=== PATIENT | male | born 1940 | race American Indian/Alaskan Native ===

== ENCOUNTER 2017-11-16 15:27 | Inpatient (IN) | payer MEDICARE ==
[2017-11-16] MEDS ORDERED: Vancomycin 1gm in NS 250ml 1 GM/250 ML BAG IVPB STA (16:49)
[2017-11-16] MEDS ORDERED: Piperacillin/Tazobact 3.375 gm 100 ML IVPB STA (16:49)
[2017-11-16 17:17] LABS: EOS % 0.2 % (1.5-5.0); GRAN # 2.78 (1.4-6.5); GRAN % 47.3 % (50.0-68.0); HEMOGLOBIN 10.6 g/dL (14.0-18.0); LYMPH # 1.9 (1.2-3.4); LYMPH % 31.7 % (22.0-35.0); MEAN CELL VOLUME 88.1 fl (80.0-105.0); MEAN CORPUSCULAR HEMOGLOBIN 28.6 pg (25.0-35.0); MEAN CORPUSCULAR HGB CONC 32.5 g/dl (31.0-37.0); MEAN PLATELET VOLUME 12.3 fl (7.0-11.0); MONO # 1.2 (0.1-0.6); MONO % 20.8 % (1.0-6.0); PLATELET COUNT 126 10^3/uL (120.0-450.0); RED CELL DISTRIBUTION WIDTH 13.2 % (11.5-14.5); VENOUS BLOOD GAS BASE EXCESS 5.3 mmol/L (0.0-2.0); VENOUS BLOOD GAS PO2 35 mm/Hg (30-55); VENOUS BLOOD PH 7.32 (7.32-7.43); WHITE BLOOD COUNT 5.9 10^3/ul (4.5-11.0)
--- NOTE | 2017-11-16 17:17 | ED PDOC ---
Arrival/HPI - General Chief Complaint: Lower Extremity Problem/Injury Time Seen by Provider: 11/16/17 15:50 Historian: Patient - History of Present Illness Narrative History of Present Illness (Text): 11/16/17 17:13 77-year-old male presents today with a nonhealing wound to the medial aspect of the right ankle. Patient states she was sent into the emergency room by his rail specialist today for admission. Patient states he is having increasing pain to the medial aspect of the right ankle with increasing swelling and erythema. Patient denies fevers or chills. Denies chest pain or shortness of breath. Patient denies dizziness or weakness. Patient states he does not take any medications for pain at home. Patient states he's been on multiple antibiotics for this wound without improvement. Patient denies numbness weakness or tingling in the extremity. No other complaints. Past Medical History - Provider Review Nursing Documentation Reviewed: Yes - Travel History Have you recently traveled outside [place] w/in the past 3 mons?: No - Infectious Disease Hx of Infectious Diseases: None - Tetanus Immunization Tetanus Immunization: Unknown - Cardiac Hx Cardiac Disorders: Yes Hx Hypertension: Yes Hx Pacemaker: No - Pulmonary Hx Respiratory Disorders: No - Neurological Hx Neurological Disorder: No Hx Paralysis: No - HEENT Hx HEENT Disorder: Yes Hx Cataracts: Yes (BILAT.) - Renal Hx Renal Disorder: No - Endocrine/Metabolic Hx Endocrine Disorders: Yes Hx Diabetes Mellitus Type 2: Yes - Hematological/Oncological Hx Blood Disorders: Yes Hx Blood Transfusions: Yes Hx Blood Transfusion Reaction: No Hx Cancer: Yes (prostate) - Integumentary Hx Dermatological Disorder: No - Musculoskeletal/Rheumatological Hx Musculoskeletal Disorders: Yes Hx Arthritis: Yes Hx Degenerative Joint Disease: Yes Hx Falls: No Other/Comment: HX: RIGHT SHOULDER -SURGERY"THEY PUT A NEW ONE IN.". HX: RIGHT TOES- INJURY AT WORK-SURGERY TO REPAIR - Gastrointestinal Hx Gastrointestinal Disorders: No - Genitourinary/Gynecological Hx Genitourinary Disorders: Yes Hx Prostate Cancer: Yes - Psychiatric Hx Psychophysiologic Disorder: No Hx Depression: No Hx Substance Use: No - Surgical History Hx Cataract Extraction: Yes (RIGHT EYE) Hx Cardiac Catheterization: Yes Hx Orthopedic Surgery: Yes Other/Comment: STOMACH/FOOT SURGERY - Anesthesia Hx Anesthesia: Yes Hx Anesthesia Reactions: No Hx Malignant Hyperthermia: No - Suicidal Assessment Feels Threatened In Home Enviroment: No Family/Social History - Physician Review Nursing Documentation Reviewed: Yes Family/Social History: Unknown Family HX Smoking Status: Never Smoked Hx Alcohol Use: No Hx Substance Use: No Hx Substance Use Treatment: No Allergies/Home Meds Allergies/Adverse Reactions: Allergies lisinopril Allergy (Verified 04/21/16 16:11) ANAPHYLAXIS Home Medications: Home Meds Medication Instructions Recorded Confirmed Aspirin [Ecotrin] 325 mg PO DAILY 03/06/15 11/16/17 Bicalutamide 50 mg PO DAILY 03/06/15 11/16/17 [place] Cit/D3/K/Mag Ox/Stron/Bor 2 tab PO BID 03/06/15 11/16/17 [Prosteon] Metformin HCl [Metformin] 1,000 mg PO BID 03/06/15 11/16/17 amLODIPine [Norvasc] 10 mg PO DAILY 03/06/15 11/16/17 Calcium Citrate 200 mg PO DAILY 02/04/17 11/16/17 Review of Systems - Review of Systems Constitutional: absent: Fatigue, Fevers Respiratory: absent: SOB, Cough Cardiovascular: absent: Chest Pain, Palpitations Gastrointestinal: absent: Abdominal Pain, Nausea, Vomiting Musculoskeletal: Arthralgias. absent: Back Pain, Neck Pain Skin: Skin Lesions, Cellulitis Neurological: absent: Headache, Dizziness Psychiatric: absent: Anxiety, Depression Physical Exam Vital Signs Reviewed: Yes Vital Signs Temp Pulse Resp BP Pulse Ox 11/16/17 17:07 94 H 18 122/69 98 11/16/17 15:45 99.5 F 100 H 20 124/72 98 Temperature: Afebrile Blood Pressure: Normal Pulse: Tachycardic Respiratory Rate: Normal Appearance: Positive for: Well-Appearing, Non-Toxic, Comfortable Pain Distress: None Mental Status: Positive for: Alert and Oriented X 3 - Systems Exam Head: Present: Atraumatic Mouth: Present: Moist Mucous Membranes Respiratory/Chest: Present: Clear to Auscultation Cardiovascular: Present: Regular Rate and Rhythm Abdomen: No: Tenderness, Distention, Peritoneal Signs, Rebound, Guarding Upper Extremity: Present: Normal ROM Lower Extremity: Present: NORMAL PULSES, Tenderness (right leg; + ulceration noted to medial aspect of right ankle with surrounding erythema and tenderness; + edema noted to foot and ankle; sensation and distal pulses intact; cap refill <2. ), Swelling, Erythema, Neurovascularly Intact, Capillary Refill < 2 s. No: CALF TENDERNESS Neurological: Present: GCS=15, Speech Normal Skin: Present: Warm, Dry Psychiatric: Present: Alert, Oriented x 3 Medical Decision Making ED Course and Treatment: 11/16/17 17:19 77-year-old male with ulceration to the medial aspect of the right ankle that has been nonhealing. Now with surrounding erythema and edema. CBC hgb;10.6 CMP: glucose; 113 Blood cultures pending Urine cultures pending Wound cultures pending Vancomycin and Zosyn started IV Per patient's rail specialist patient had negative x-ray of the ankle and will need MRI to rule out osteomyelitis. Case discussed in depth with Dr. Hood covering for dr. ian sawant patients; accepts admission impression; infected ulcer admit to med/surg - Lab Interpretations Lab Results: 11/16/17 17:00 11/16/17 17:00 Lab Results 11/16/17 17:00: WBC 5.9 D, RBC 3.70, Hgb 10.6 L, Hct 32.6 L, MCV 88.1, MCH 28.6 , MCHC 32.5, RDW 13.2, Plt Count 126, MPV 12.3 H, Gran % 47.3 L, Lymph % (Auto) 31.7, Cass % (Auto) 20.8 H, Eos % (Auto) 0.2 L, Baso % (Auto) 0.0, Gran # 2.78, Lymph # (Auto) 1.9, Cass # (Auto) 1.2 H, Eos # (Auto) 0.0, Baso # (Auto) 0.00, Neutrophils % (Manual) 60, Lymphocytes % (Manual) 30, Monocytes % (Manual) 9 H, Eosinophils % (Manual) 1, Platelet Evaluation Normal 11/16/17 17:00: Sodium 143, Chloride 101, Potassium 4.1, Carbon Dioxide 31, Anion Gap 14, BUN 18, Creatinine 1.0, Est GFR ( Amer) > 60, Est GFR (Non- Af Amer) > 60, Random Glucose 113 H, Calcium 10.1, Total Bilirubin 0.3, AST 19, ALT 29, Alkaline Phosphatase 65, Total Protein 7.7, Albumin 4.4, Globulin 3.3, Albumin/Globulin Ratio 1.3 11/16/17 17:00: pO2 35, VBG pH 7.32, VBG pCO2 65.0 H, VBG HCO3 33.5 H, VBG Total CO2 35.5 H, VBG O2 Sat (Calc) 66.5 H, VBG Base Excess 5.3 H, VBG Potassium 4.0, Sodium 142.0, Chloride 107.0, Glucose 115 H, Lactate 1.3, FiO2 21.0, Venous Blood Potassium 4.0 11/16/17 16:59: POC Glucose (mg/dL) 113 H - RAD Interpretation Radiology Orders: 11/16/17 16:46 DUPLEX LOWER EXTRM VEIN RIGHT [US] Stat - Medication Orders Current Medication Orders: Discontinued Medications Vancomycin HCl (Vancomycin 1gm) 1 gm in 250 mls @ 167 mls/hr IVPB STAT STA PRN Reason: Protocol Stop: 11/16/17 18:18 Last Admin: 11/16/17 17:53 Dose: 167 mls/hr eMAR Start Stop Document 11/16/17 17:53 HI (Rec: 11/16/17 17:53 HI [id number]) Intravenous Solution Start Date 11/16/17 Start Time 17:53 Piperacillin Sod/Tazobactam Sod (Zosyn 3.375 In Ns 100ml) 100 mls @ 200 mls/hr IVPB STAT STA PRN Reason: Protocol Stop: 11/16/17 17:18 Last Admin: 11/16/17 17:09 Dose: 200 mls/hr eMAR Start Stop Document 11/16/17 17:09 RG (Rec: 11/16/17 17:11 RG [id number]) Intravenous Solution Start Date 11/16/17 Start Time 17:09 Disposition/Present on Arrival - Present on Arrival Any Indicators Present on Arrival: Yes History of DVT/PE: No History of Uncontrolled Diabetes: Yes Urinary Catheter: No History of Decub. Ulcer: No History Surgical Site Infection Following: None - Disposition Have Diagnosis and Disposition been Completed?: Yes Diagnosis: Infected ulcer of skin Disposition: HOSPITALIZED Disposition Time: 18:43 Patient Plan: Admission Condition: FAIR Referrals: Ian Ford MD [Primary Care Provider] - Follow up with primary Forms: [employer] (Lao)
[2017-11-16 17:29] LABS: ALB/GLOB RATIO 1.3 (1.1-1.8); ALBUMIN 4.4 g/dL (3.0-4.8); ALT/SGPT 29 U/L (7-56); AST/SGOT 19 U/L (17-59); BLOOD UREA NITROGEN 18 mg/dL (7-21); CALCIUM 10.1 mg/dL (8.4-10.5); GFR AFRICAN-AMERICAN > 60; GFR NON-AFRICAN AMERICAN > 60
--- NOTE | 2017-11-16 18:02 | US ---
PROCEDURE: Right lower extremity venous US HISTORY: Leg pain and swelling. Evaluate for DVT. PHYSICIAN(S): Misbah Chand M.D. TECHNIQUE: Duplex sonography and color-flow Doppler with graded compression were used to evaluate the deep venous system of the right lower extremity. FINDINGS: The visualized deep venous system of the right lower extremity is sonographically normal and compressible. Normal waveforms and augmentation are seen. There is no sonographic evidence for deep venous thrombosis in the visualized segments of the right lower extremity. IMPRESSION: 1. No sonographic evidence for deep venous thrombosis in the visualized segments of the right lower extremity.
[2017-11-16 18:11] LABS: EOSINOPHIL 1 % (0.0-3.0); LYMPHOCYTE 30 % (22.0-35.0); MONOCYTE 9 % (1.0-6.0); NEUTROPHIL 60 % (50.0-70.0); PLATELET ESTIMATE NORMAL (NORMAL)
[2017-11-16 19:10] LABS: URINE BILIRUBIN NEGATIVE (NEGATIVE); URINE BLOOD NEGATIVE (NEGATIVE); URINE GLUCOSE (UA) NEGATIVE (NEGATIVE); URINE LEUKOCYTE ESTERASE NEGATIVE Leu/uL (NEGATIVE); URINE PROTEIN TRACE mg/dL (<30 mg/dL); URINE UROBILINOGEN 0.2 E.U./dL (<1 E.U./dL)
[2017-11-16 19:14] LABS: URINE APPEARANCE CLEAR (CLEAR); URINE COLOR YELLOW (YELLOW)
[2017-11-16 19:15] LABS: URINE RBC NEGATIVE /hpf (0-2); URINE WBC NEGATIVE /hpf (0-6)
[2017-11-16] MEDS: Vancomycin 1gm in NS 250ml 1 GM/250 ML BAG IVPB SCH (21:00)
[2017-11-17] MEDS: Piperacillin/Tazobact 3.375 gm 100 ML IVPB SCH ×2 (00:32→05:55)
[2017-11-17] MEDS: Insulin Lispro (humaLOG) MEDIUM Coverage SC SCH ×3 (00:33→12:04)
[2017-11-17 01:56] VITALS: BMI 30.3
--- NOTE | 2017-11-17 03:15 | HP ---
HISTORY OF PRESENT ILLNESS: The patient is a 77-year-old , very pleasant gentleman, who was referred by Dr. Cooper for nonhealing ulcer and wound on the right ankle medial malleolar part. He has been followed with him regularly in wound care center. He states that he has pain on has been increasingly getting worse along with swelling and redness. Denies any trauma to the area, no history of falls, no history of fever or chills, no history of nausea or vomiting, no diarrhea, no chest pain, no shortness of breath. The patient states he has been regularly following with the impregnator and has multiple rounds of antibiotics. PAST MEDICAL HISTORY: Significant for 1. Hypertension. 2. Azq-bugcztw-xxxbayzgd diabetes. 3. History of CA prostate, on Casodex. 4. History of penile lesion excision. 5. History of degenerative disk disease. PAST SURGICAL HISTORY: Significant for 1. Bilateral cataract extraction. 2. Status post right shoulder surgery. ALLERGY: HE IS ALLERGIC TO LISINOPRIL. MEDICATIONS AT HOME: He is on 1. Multivitamin. 2. Aspirin 325 daily. 3. Norvasc 10 mg daily. 4. Metformin 1000 twice a day. 5. Casodex 50 mg daily. SOCIAL HISTORY: Denies smoking, drinking or alcohol use. PHYSICAL EXAMINATION: GENERAL: He is awake, alert, oriented, communicative. VITAL SIGNS: His temperature 99.5, pulse 100, respirations 20, blood pressure 124/72. LUNGS: Bilateral good airflow. No rhonchi or crackle. HEART: S1 and S2 audible. No murmur. ABDOMEN: Soft, nontender, no rebound, no guarding. NEUROLOGIC: The patient is awake and alert, communicative. EXTREMITIES: Right medial malleolar aspect, there is ulceration on the medal aspect along with erythema and palpable tenderness, also swelling of the foot and ankle. Distal pulses seem to be intact. LABORATORY DATA: WBC 5.9, hemoglobin 10.6, hematocrit 32.6, platelets of 126. Chemistry: Sodium 143, potassium 4.1, chloride 101, CO2 of 31, BUN 18, creatinine 1, blood sugar of 113. LFTs are within normal limits. Urinalysis is unremarkable. He had leg Doppler done that was negative for DVT. X-ray of the ankle done on 11/09/2017 is normal. ASSESSMENT AND PLAN: 1. Nonhealing right ankle medial malleolar wound. 2. Bcj-ebyhvmf-mfhrmwauk diabetes. 3. Hypertension. 4. History of cancer of prostate. PLAN: The patient will be admitted. We will give him IV antibiotic, monitor blood sugar. ID consult by Dr. Tariq and Podiatry consult by Dr. Cooper has been requested. Kirsty Hood MD
[2017-11-17] MEDS: Vancomycin 1gm in NS 250ml 1 GM/250 ML BAG IVPB SCH ×2 (08:17→20:37)
[2017-11-17] MEDS: Aspirin 325 mg EC Tablets PO SCH ×2 (10:11→10:20)
[2017-11-17] MEDS: MethylPREDNISolone 40 mg Vial IVP SCH ×2 (10:12→17:05)
--- NOTE | 2017-11-17 11:30 | RAD ---
PROCEDURE: Right Ankle Radiographs. HISTORY: Pain COMPARISON: None FINDINGS: BONES: No evidence of acute displaced fracture nor dislocation. . The osseous structures appear intact. Talar dome intact. Small plantar and posterior calcaneal enthesophyte formation noted. JOINTS: Ankle mortise maintained Degenerative changes of the tibiotalar articulation. There is also a calcification along the lateral aspect of the distal right tibial diametaphysis which may be secondary to an old posttraumatic sequela or possibly ossification of the interosseous membrane. SOFT TISSUES: There is mild soft tissue swelling over the medial and lateral malleoli former slightly more so than latter. OTHER FINDINGS: None. IMPRESSION: No acute fractures. Degenerative osteoarthritis as described. 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 Mild bilateral soft tissue swelling medial slightly greater than lateral.
--- NOTE | 2017-11-17 17:01 | PN ---
DATE: 11/17/2017 SUBJECTIVE: This is a 77-year-old diabetic male, seen for a nonhealing ulceration to his right lower extremity. Patient states it started 3 months ago as a blister and has progressively gotten worse. He states that he saw Dr. Cooper yesterday and Dr. Cooper noted that the leg was red and brought patient into the hospital. Patient has a past medical history of prostate cancer for which he is taking Casodex. He also has a history of type 2 diabetes. Patient has had venous Dopplers. He has had extremity arterial Dopplers and everything was within normal limits. There was no blood clot seen in the leg and his vascular was within normal limits. I did state to Dr. Chand about this. The patient also saw the guest service supervisor for an autoimmune workup and that workup was also negative. Dr. Willingham, the guest service supervisor, apparently stated that there is a possibility of placing patient on Plaquenil and prednisone if vasculitis is noted. Patient also had a skin biopsy and it was noted that he did have a focal vasculitis and stromal changes in the epidermis and it was consistent with venous stasis changes and it was also negative for malignancy. PHYSICAL EXAMINATION: VITAL SIGNS: Patient's vital signs were noted today. His temperature is 98.6, his pulse is 95, blood pressure is 149/100, his respiratory rate was 20 and his oxygen sat is 97. MEDICATIONS: Noted on the SEP and he is presently on vancomycin as per Infectious Disease. 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 He is on Norvasc. He is being covered with Humalog. He is taking Glucophage, Ecotrin and Casodex. LABORATORY DATA: Patient's labs were reviewed. His white blood cell count is 5.9. His ESR is 30. H and H is 10.6 and 32.6 and platelets are 126. He has granulocytes of 47.3, lymphocytes are 31.1 and this is a shift to the right, not to the left, which would be for an acute infection. Patient's chemistry is grossly within normal limits. His random glucose at this time is 113 yesterday. Today, it is 187. Patient as noted has been started on prednisone. Unfortunately, that will make those glucoses erratic. His microbiology for all the visits were coag-negative Staph that I have seen in the computer, Gram stain done yesterday was pending, and clinically the patient has 2/4 palpable pedal pulses. His temperature gradient is warm on the right and within normal limits on the left. He does have a +3 edema to the right foot and ankle and no edema is noted on the left foot and ankle. Patient is severely painful with palpation of his Achilles tendon and the tenderness is more so at the mild tenderness junction and at the insertion. He also has a lot of pain with forced dorsiflexion of his foot, again in the area of the calf and the Achilles tendon. There does not appear to be any fluctuance around the wound. There is redness around the wound and the tissue is fibrous with some hemorrhage tissue in the upper corner of the wound. The wound measures approximately 2 x 2.5 x 0.1 cm. There is no sinus tract. There is no fluctuance noted. ASSESSMENT: A non-healing ulceration to the right leg, nonpressure ulceration. PLAN OF TREATMENT: MRI was ordered. I asked them to pinpoint on the Achilles tendon to rule out any Achilles tendon tear. We will also look for any abscess in the leg. Patient might need a second biopsy that we can send this to a Dermpath. X-rays were also ordered to take a look at the bones on the ankles and some medications he is on can cause osteopenia and it also causes angioedema and edema of the extremities. This was all discussed with patient and at this time, we will await the findings of the imaging and I think, the patient most likely will need compression dressings if all these are negative. Patient was dressed with a film dressing today and we ordered Bactroban ointment to be placed on the wound under the film. Gricel Knight DPM
[2017-11-17] MEDS: Insulin Lispro (HUMAlog) HIGH Coverage SC SCH ×2 (17:05→21:49)
--- NOTE | 2017-11-17 17:39 | PN ---
DATE: SUBJECTIVE: The patient is a 77-year-old who was sent by Dr. Cooper for nonhealing ulcer. The patient had biopsy done that was nondiagnostic. Also, had arterial study done that was also unremarkable for PVD, so sent here for further followup. The patient was also evaluated by Dr. Willingham who did autoimmune workup, was also negative. PHYSICAL EXAMINATION: GENERAL: Today, he is awake and alert, communicative. VITAL SIGNS: He is afebrile, pulse 95, respirations 20, blood pressure 149/100. LUNGS: Bilateral good airflow. No rhonchi or crackle. HEART: S1 and S2 audible. ABDOMEN: Soft, nontender. No rebound. No guarding. NEUROLOGICAL: He is awake and alert, able to communicate. EXTREMITIES: He has erythema around his ankle and right foot. Left foot and ankle is within normal limits. LABORATORY DATA: His ESR is 30. Chemistry: Blood sugar is 187, C-reactive protein is 6.58. Urinalysis is unremarkable. Ankle wound shows gram-negative rods. MRI is pending. X-rays are unremarkable. ASSESSMENT: 1. Non-healing right ankle medial malleolar ulcer, differential is autoimmune versus diabetic ulcer. 2. Non-insulin dependent diabetes. 3. Hypertension. 4. Overweight. 5. History of cancer of prostate. PLAN: Discussed with Dr. Misbah Chand. We will give him high dose of steroids. Monitor his ulcer. We will continue antibiotic and have local wound care and monitor his blood sugar. Kirsty Hood MD
[2017-11-17] MEDS: Meropenem IV 1 gm in NS 50 ML IVPB SCH ×2 (20:45→22:33)
--- NOTE | 2017-11-18 00:02 | CON ---
DATE: 11/17/2017 REASON FOR CONSULTATION: Prostate cancer, nonhealing ulcer of left ankle. HISTORY OF PRESENT ILLNESS: Mr. Michael is a 77-year-old male admitted to the hospital with right ankle ulceration, which has been there for three months. He was diagnosed with prostate cancer nine years ago, underwent prostatectomy. Since then, he has been on Casodex and Lupron every three months. There was a concern whether Casodex is causing nonhealing ulcer on the right leg. As per information given by the patient, he has been in remission from prostate cancer. He follows with Dr. Trevino, Urology in [place]. He has received multiple rounds of antibiotics for right ankle ulceration. PAST MEDICAL HISTORY: Hypertension, diabetes mellitus type 2, prostate cancer, history of degenerative disc disease. PAST SURGICAL HISTORY: Bilateral cataract extraction, status post shoulder surgery, prostatectomy. ALLERGIES: LISINOPRIL. HOME MEDICATIONS: Multivitamin, Casodex, metformin, Norvasc, aspirin. SOCIAL HISTORY: Denies any smoking. No history of alcohol abuse. FAMILY HISTORY: Noncontributory. REVIEW OF SYSTEMS: As per HPI. Rest of 12-point review of systems reviewed negative. PHYSICAL EXAMINATION: GENERAL: Awake, alert, oriented, communicative. VITAL SIGNS: Stable. Temperature 98.7, heart rate 80 per minute, respiratory rate 18 per minute, blood pressure 124/74. HEENT: Normal. NECK: No lymphadenopathy. CHEST: Air entry present and equal bilaterally. No added sounds. CARDIOVASCULAR: S1, S2 normal. No murmur. No gallop. ABDOMEN: Soft, nontender. No hepatosplenomegaly. No rigidity. No guarding. NEURO: Awake, alert, oriented x3. No focal sensory or motor deficit. EXTREMITIES: Right leg superficial ulceration with whitish base. No secretions present on the medial malleolus. LABORATORY DATA: Hemoglobin 10.6, white count 5.9, hematocrit 32.6, platelets 126. Sodium 143, potassium 4.1. BUN 18, creatinine 1. Blood sugar 113. ASSESSMENT: 1. Prostate cancer. 2. Nonhealing ulcer on the right malleolus. 3. Hypertension. 4. Diabetes mellitus type 2. PLAN: 1. Prostate cancer. We will do the PSA level. As per information given by the patient, he has been in remission. He denies any imaging done for prostate cancer. We will await PSA results. If elevated PSA, we will do a bone scan. MRI of the right ankle has been ordered. ROSALIO did not show peripheral vascular disease. 2. ID, right ankle showing gram-negative rods. ID Dr. Tariq is following. He is currently on broad-spectrum antibiotics. 3. There is concern for Casodex causing nonhealing right ulcer. Casodex is not related to nonhealing ulcer, neither it has been known to decrease immunity. I would recommend continuing Casodex and Lupron. 4. We will consider staging workup for prostate cancer. CT of chest, abdomen, pelvis and bone scans since it has been 10 years since diagnosis. I discussed with the patient, discussed with Dr. Hood. Thank you, Dr. Hood, for allowing us to participate in Mr. Michael' care. Miriam Rodriguez MD
[2017-11-18] MEDS: MethylPREDNISolone 40 mg Vial IVP SCH ×2 (01:44→10:46)
--- NOTE | 2017-11-18 01:53 | CON ---
DATE: 11/17/2017 LOCATION: The patient is seen earlier in room 564, bed 1. CHIEF COMPLAINT: Right ankle ulcer times several days. HISTORY OF PRESENT ILLNESS: This is a 77-year-old male with history of diabetes mellitus, hypertension, hyperlipidemia, cataract, arthritis, degenerative joint disease, prostate cancer, who has had a lesion that started off with bullous lesion and it broke out in the right medial aspect of his right ankle. He denies any fevers and chills. No chest pain. No abdominal pain, diarrhea or constipation. No bright red blood per rectum. No melena. REVIEW OF SYSTEMS: Twelve-point review of systems is noted. The patient has no headaches, blurred vision, neck pain, sore throat and no chest pain, shortness of breath or cough. No diarrhea or constipation. No bright red blood per rectum. PAST MEDICAL HISTORY: Significant for diabetes mellitus, coronary artery disease, hyperlipidemia, hypertension, cataracts, arthritis, degenerative joint disease and prostate cancer. PAST SURGICAL HISTORY: Significant for radical prostatectomy, right shoulder surgery and a bilateral cataract surgery. ALLERGIES: THE PATIENT IS ALLERGIC TO LISINOPRIL. MEDICATIONS AT HOME: Include the patient to be on metformin. PHYSICAL EXAMINATION: GENERAL: The patient is in bed. VITAL SIGNS: Temperature of 98, heart rate of 100, respiratory rate of 20, blood pressure is 140/100. HEENT: Examination of HEENT is unremarkable. NECK: Supple. LUNGS: Have decreased breath sounds. HEART: Normal S1 and S2. ABDOMEN: Soft, nontender. EXTREMITIES: Ankle ulcer is on the right medial aspect of the right ankle. There is an open ulcer and there is erythema around it and discharge. LABORATORY DATA: Laboratory examination reveals the patient has a white count of 5.9, hemoglobin of 10, platelets of 126. Sed rate of 30. BUN of 18, creatinine of 1, random glucose is 113. C-reactive protein is 6.58. Sed rate is 30. Urinalysis is noted. Blood cultures are negative. The urine culture is not done. Ankle culture is growing a gram-negative shady. ASSESSMENT AND PLAN: A 77-year-old male with diabetes mellitus, prostate cancer, hypertension, coronary artery disease, hyperlipidemia and cataracts, arthritis, degenerative joint disease. He had a right ankle medial leg ulcer and cellulitis and with gram-negative rods. He is on meropenem at this time and the patient is already on vancomycin. The patient is scheduled for MRI to rule out underlying osteomyelitis. Vascular consultation and Podiatry consultation are needed and appreciated. We will make further recommendations upon availability of initial results. We will follow closely with you. Yahir Tariq MD
[2017-11-18] MEDS: Meropenem IV 1 gm in NS 50 ML IVPB SCH ×3 (06:35→21:32)
[2017-11-18 07:32] LABS: FREE T4 1.26 ng/dL (0.78-2.19)
[2017-11-18 07:33] LABS: ALB/GLOB RATIO 1.2 (1.1-1.8); ALBUMIN 3.8 g/dL (3.0-4.8); ALT/SGPT 21 U/L (7-56); AST/SGOT 27 U/L (17-59); BLOOD UREA NITROGEN 21 mg/dL (7-21); CALCIUM 9.7 mg/dL (8.4-10.5); GFR AFRICAN-AMERICAN > 60; GFR NON-AFRICAN AMERICAN > 60
[2017-11-18] MEDS: Insulin Lispro (HUMAlog) HIGH Coverage SC SCH ×4 (08:02→20:00)
[2017-11-18] MEDS: Vancomycin 1gm in NS 250ml 1 GM/250 ML BAG IVPB SCH ×2 (08:03→18:29)
--- NOTE | 2017-11-18 09:14 | CP.PCM.PN ---
Subjective - Date & Time of Evaluation Date of Evaluation: 11/18/17 Time of Evaluation: 09:08 - Subjective Subjective: Podiatry Progress note: Dr. Cooper/Dr. Knight 77 year old male was seen and evaluated this morning with attending Dr. Knight for right leg wound. Patient reports that he is feeling a lot better and the pain has reduced a lot. Denies of having any acute overnight events. Denies of having any F/N/V/C/SOB/CP/headache. Denies of any other pedal complains at this time. Objective - Vital Signs/Intake and Output Vital Signs (last 24 hours): Temp Pulse Resp BP Pulse Ox 98.2 F 56 L 18 143/81 94 L 11/18/17 06:00 11/18/17 06:00 11/18/17 06:00 11/18/17 06:00 11/18/17 06:00 Intake and Output: 11/18/17 11/18/17 06:59 18:59 Intake Total 540 Output Total 1500 Balance -960 - Medications Medications: Current Medications Amlodipine Besylate (Norvasc) 10 mg PO DAILY [facility] Last Admin: 11/17/17 10:11 Dose: 10 mg Aspirin (Ecotrin) 325 mg PO DAILY [facility] Last Admin: 11/17/17 10:20 Dose: Not Given Bicalutamide (Casodex) 50 mg PO DAILY [facility] Last Admin: 11/17/17 10:58 Dose: 50 mg Glimepiride (Amaryl) 2 mg PO ACBD [facility] Last Admin: 11/18/17 08:02 Dose: 2 mg Vancomycin HCl (Vancomycin 1gm) 1 gm in 250 mls @ 167 mls/hr IVPB Q12H [facility] PRN Reason: Protocol Last Admin: 11/18/17 08:03 Dose: 167 mls/hr Meropenem (Merrem Iv 1 Gm Premix) 50 mls @ 100 mls/hr IVPB Q8 [facility] PRN Reason: Protocol Stop: 11/26/17 19:29 Last Admin: 11/18/17 06:35 Dose: 100 mls/hr Insulin Human Lispro (Humalog High) 0 units SC ACHS [facility] PRN Reason: Protocol Last Admin: 11/18/17 08:02 Dose: 4 units Metformin HCl (Glucophage) 1,000 mg PO BID [facility] Last Admin: 11/17/17 17:05 Dose: 1,000 mg Methylprednisolone (Solu-Medrol) 40 mg IVP Q8H [facility] Last Admin: 11/18/17 01:44 Dose: 40 mg Mupirocin (Bactroban Ointment) 0 gm TOP BID [facility] Last Admin: 11/17/17 17:05 Dose: 1 gm - Labs Labs: 11/18/17 06:20 - Constitutional Appears: Well, Non-toxic, No Acute Distress - Extremities Exam Additional comments: Right LE focused exam: VASC: DP/PT pulses are palpable 2/4, Cap refill time: < 3 sec to all digits, Temp gradient: warm to cool from proximal to distal, no pitting or non-pitting edema noted on the RLE DERM: Wound measuring approx. 3.5 cm x 3.5 cm x 0.1 cm on the medial aspect of the right ankle, wound base is mainly granular with islands of fibrosis, periwound erythema noted which appears to be decreasing, no active drainage, no purulence, no tunneling, no undermining, no probe to bone, no malodor NEURO: protective sensation grossly intact ORTHO: Pain on palpation of the wound, AROM and PROM at the AJ present in all 4 directions - Neurological Exam Neurological Exam: Alert, Awake, Oriented x3 - Psychiatric Exam Psychiatric exam: Normal Affect, Normal Mood Assessment and Plan - Assessment and Plan (Free Text) Assessment: 77 year old male with right medial ankle wound (carpenter grade 1) Plan: Patient seen and evaluated with attending Dr. Knight Labs, vitals and charts reviewed Wound cleaned with saline and dressing applied using bactroban, optifoam Wound cx: prelim - G negative rods Right ankle X-rays: No acute changes, no signs of acute OM, increase in soft tissue density on medial ankle consistent with cellulitic changes Await MRI Continue methylprednisolone for 1 week IV abx as per ID - Meropenem and Vancomycin Podiatry to follow patient while in-house Upon discharge, follow up at wound care center for further care
--- NOTE | 2017-11-18 10:45 | MRI ---
MRI right ankle History: Ulcer. Evaluate for osteomyelitis. Comparison: None available. Technique: Multi-echo multiplanar sequences were performed through the right ankle without the use of intravenous contrast. Findings 1.4 centimeter soft tissue ulcer/defect overlying the medial malleolus of the distal tibia. Adjacent signal abnormality within the medial aspect of the medial malleolus of the distal tibia best seen on series 2, image 25 with increased STIR signal and minimal patchy decreased T1 signal suggestive for acute osteomyelitis. Reticulation and edema within the circumferential subcutaneous soft tissues. Anterior extensor tendons are preserved. Mild tenosynovitis of the posterior tibial tendon sheath. Flexor digitorum longus tendon appears preserved. Mild tenosynovitis of the flexor hallucis tendon. Peroneal tendons are preserved. Probable chronic partial tearing of the posterior tibiofibular ligament/syndesmosis with heterotopic bone and or bony exostosis emanating from the posterior lateral cortex of the distal tibia measuring up to 8 millimeters. Clinical correlation. Additional chronic partial tearing of the anterior tibiofibular ligament/syndesmosis. Anterior and posterior talofibular ligaments are grossly preserved. Mild increased signal at the level of the Lisfranc ligament which may represent a low grade sprain. Suggestion of signal changes seen within the medial aspect of the middle cuneiform bone suggestive for osteochondral change. Achilles tendon is preserved. Thickening of the plantar fascia measuring up to 1.2 centimeters with adjacent bony spurring suggestive for a moderate plantar fascitis. 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 Reactive edema seen within the mid talus. Small ankle joint effusion. Narrowing of the tibiotalar joint space. Degenerative changes with bony spurring noted at the dorsal aspect of the talonavicular joint space. Degenerative changes noted at the articulation of the anterior calcaneus and navicular bone. Mild increased signal within the deep fibers of the deltoid ligament. Prominence of the middle subtalar joint space. Impression: 1. 1.4 centimeter soft tissue ulcer/defect overlying the medial malleolus of the distal tibia. Adjacent signal abnormality within the medial aspect of the medial malleolus of the distal tibia best seen on series 2, image 25 with increased STIR signal and minimal patchy decreased T1 signal suggestive for acute osteomyelitis. 2. Mild tenosynovitis of the posterior tibial tendon sheath. 3. Mild tenosynovitis of the flexor hallucis tendon. 4. Probable chronic partial tearing of the posterior tibiofibular ligament/syndesmosis with heterotopic bone and or bony exostosis emanating from the posterior lateral cortex of the distal tibia measuring up to 8 millimeters. Clinical correlation. 5. Additional chronic partial tearing of the anterior tibiofibular ligament/syndesmosis. 6. Mild increased signal at the level of the Lisfranc ligament which may represent a low grade sprain. 7. Suggestion of signal changes seen within the medial aspect of the middle cuneiform bone suggestive for osteochondral change. 8. Thickening of the plantar fascia measuring up to 1.2 centimeters with adjacent bony spurring suggestive for a moderate plantar fascitis. 9. 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 Reactive edema seen within the mid talus. 10. Small ankle joint effusion. 11. Narrowing of the tibiotalar joint space. 12. Degenerative changes with bony spurring noted at the dorsal aspect of the talonavicular joint space. 13. Degenerative changes noted at the articulation of the anterior calcaneus and navicular bone. 14. Mild increased signal within the deep fibers of the deltoid ligament. 15. Prominence of the middle subtalar joint space.
[2017-11-18] MEDS: Aspirin 325 mg EC Tablets PO SCH (10:47)
--- NOTE | 2017-11-18 11:02 | MRI ---
MRI right tibia and fibula History: Ulcer. Evaluate for osteomyelitis. Comparison: None available. Technique: Multi-echo multiplanar sequences were performed through the right tibia and fibula without the use of intravenous contrast. Findings: Prominent soft tissue ulcer seen within the medial soft tissues at the level of the distal medial tibia. Signal abnormality within the medial cortex of the medial malleolus of the distal tibia with patchy increased STIR signal and patchy decreased T1 signal suggestive for an acute osteomyelitis. Clinical correlation. Please see separate MR report of the right ankle for better delineation of this region. Mild reactive edema seen within the posterior musculature at that level which may represent an underlying myositis. Reticulation and edema within the circumferential subcutaneous soft tissues of the lower extremity suggestive for an underlying cellulitis. Remainder of the visualized osseous structures and musculature appear grossly preserved. Impression: Prominent soft tissue ulcer seen within the medial soft tissues at the level of the distal medial tibia. Signal abnormality within the medial cortex of the medial malleolus of the distal tibia with patchy increased STIR signal and patchy decreased T1 signal suggestive for an acute osteomyelitis. Clinical correlation. Please see separate MR report of the right ankle for better delineation of this region. Mild reactive edema seen within the posterior musculature at that level which may represent an underlying myositis. Reticulation and edema within the circumferential subcutaneous soft tissues of the lower extremity suggestive for an underlying cellulitis.
[2017-11-18] MEDS ORDERED: MethylPREDNISolone 40 mg Vial IVP SCH (12:15)
[2017-11-18 14:59] VITALS: RESP 20
--- NOTE | 2017-11-18 18:52 | RAD ---
HISTORY: CONFIRM PICC LINE PLACEMENT COMPARISON: No prior. FINDINGS: LUNGS: No active pulmonary disease. PLEURA: No significant pleural effusion identified, no pneumothorax apparent. CARDIOVASCULAR: No radiographic findings to suggest acute or significant cardiovascular disease. PICC line in satisfactory position, tip is in the SVC. OSSEOUS STRUCTURES: No significant abnormalities. VISUALIZED UPPER ABDOMEN: Normal. OTHER FINDINGS: None. IMPRESSION: Status post PICC placement, the tip of the catheter is in the SVC. No pneumothorax identified.
--- NOTE | 2017-11-18 22:09 | PN ---
DATE: SUBJECTIVE: The patient is a 77-year-old black male, seen and examined. He stats his pain and swelling is much better. Denies any nausea, vomiting or diarrhea. PHYSICAL EXAMINATION: VITAL SIGNS: He is afebrile. Pulse 96, respirations 20, blood pressure 135/75. LUNGS: Bilateral good airflow. No rhonchi or crackle. HEART: S1, S2 audible. ABDOMEN: Soft, nontender. No rebound. No guarding. NEUROLOGIC: Awake, alert, oriented and communicative. LABORATORY DATA: His ESR is 30. Chemistry: Sodium 142, potassium 3.8, chloride 106, CO2 of 27, BUN 21, creatinine 0.9. Blood sugar of 200. Hemoglobin A1c is 7.6. DIAGNOSTIC DATA: His MRI of the lower extremity including ankle shows acute osteomyelitis with prominent soft tissue ulcers on the medial soft tissue at distal medial tibia consistent with acute osteomyelitis. ASSESSMENT: 1. Right medial malleolus osteomyelitis. 2. Non-insulin dependent diabetes. 3. Hypertension. 4. History of cancer of prostate. PLAN: I will discontinue Solu-Medrol. Patient need 4 to 6 week of meropenem and vancomycin and we will continue local wound care. Patient is scheduled for PICC line. Once arrangement is made, patient will be sent to subacute rehab for completion of course of antibiotics. Kirsty Hood MD
--- NOTE | 2017-11-18 23:31 | PN ---
DATE: 11/18/2017 SUBJECTIVE: The patient is in bed, was seen in room 564, bed 1. No fevers and no chills and he states that his leg is much improved. PHYSICAL EXAMINATION: VITAL SIGNS: Temperature is 98, blood pressure is 137/75, heart rate of 96, respiratory rate of 20. The patient is saturating at 94%. HEENT: Unremarkable. NECK: Supple. Lungs: Have decreased breath sounds. HEART: Normal S1, S2. ABDOMEN: Soft, nontender. LABORATORY DATA: Reveals a white count of 5000 with a hemoglobin of 10, platelets of 126, sed rate is 30. Coagulation is noted. BUN of 21, creatinine of 0.9. Urinalysis is noted. Microbiology reveals an ankle culture is positive for Corynebacterium species and heavy growth of Enterobacter cloacae. Enterobacter cloacae is to ertapenem, but sensitive to Cipro, cefepime, and meropenem. There is no sensitivity for Corynebacterium species with moderate growth. Review of the orders reveals the patient to be on meropenem and vancomycin. The blood cultures are reported to be negative. The MRI reveals the patient to have acute osteomyelitis. ASSESSMENT AND PLAN: This is a 77-year-old male with diabetes mellitus, prostate cancer, hypertension, coronary artery disease, hyperlipidemia, cataract, arthritis, degenerative joint disease, right ankle medial ulcer and cellulitis with Enterobacter cloacae and Corynebacterium. Osteomyelitis by MRI. Currently, on vancomycin and meropenem. The patient also had an ankle MRI, which reveals mild tenosynovitis, probable chronic partial tearing of the posterior tibiofibular ligament. Should have vascular workup and we will follow with you. Yahir Tariq MD
[2017-11-19] MEDS: Vancomycin 1gm in NS 250ml 1 GM/250 ML BAG IVPB SCH (07:31)
[2017-11-19] MEDS: Meropenem IV 1 gm in NS 50 ML IVPB SCH ×2 (07:32→13:50)
[2017-11-19] MEDS: Insulin Lispro (HUMAlog) HIGH Coverage SC SCH ×3 (07:35→16:25)
[2017-11-19] MEDS: Aspirin 325 mg EC Tablets PO SCH (09:54)
--- NOTE | 2017-11-19 12:28 | PN ---
DATE: SUBJECTIVE: The patient is 77 years old, seen and examined, lying in bed. Seems to be comfortable. He states his pain is much better. PHYSICAL EXAMINATION: VITAL SIGNS: He is afebrile, pulse 96, respirations 20, blood pressure 147/88. LUNGS: Bilateral good airflow. No rhonchi or crackle. HEART: S1 and S2 audible. ABDOMEN: Soft. Nontender. No rebound. No guarding. NEUROLOGIC: The patient is awake and alert, able to communicate. LABORATORY EXAM: Blood sugar is 94. ASSESSMENT: 1. Kot-everbnb-cqryawmww diabetes. 2. Hypertension. 3. Right medial malleolus nonhealing ulcer for last 3 months. 4. Right medial malleolus osteomyelitis. PLAN: The patient got PICC line placed. Currently, he is on meropenem and vancomycin. The patient wants to go home. We will reach out to ID if medications can be switch around to daily IV along with p.o. combination and in that case, he will be discharged home. Otherwise, he needs to be in subacute rehab. Kirsty Hood MD
--- NOTE | 2017-11-19 16:24 | PN ---
DATE: SUBJECTIVE: A 77-year-old diabetic male seen at bedside for continued evaluation and management of osteomyelitis of his right distal lower leg, ankle. The patient states that he is feeling better with each passing day. He denies having any fever, chills, nausea, shortness of breath, or vomiting. The patient's vital signs reveal temperature of 98.6, pulse rate of 96, blood pressure of 151/95, respiratory rate of 20. LABORATORY FINDINGS: Reveal white count of 5.9, hemoglobin of 10.6, hematocrit of 32.6, platelet count of 126, and his ESR is 30. Microbiology of the right ankle reveals Enterobacter cloacae and Corynebacterium species. MRI of the right ankle taken on 11/18/2017 reveals a 1.4 cm soft tissue ulcer defect overlying the medial malleolus of the distal tibia. There is increased STIR signal and minimal patchy decreased T1 signal, which is indicative of acute osteomyelitis at this region. OBJECTIVE: Palpable pedal pulses noted bilaterally. Capillary filling time is within normal limits bilaterally. There is decreased temperature gradient warm from proximal to distal. There is no noted pitting or nonpitting lower extremity edema. There is a full-thickness ulceration that measures approximately 3.2 x 3.2 x 0.1 cm on the medial aspect of the right ankle. Base of the ulcer is primarily fibrotic with some necrotic and granulation tissue dispersed throughout. There is no probing to bone. There is no malodor. There is no purulence to suggest underlying abscess formation. The patient has absent protective sensation noted bilaterally. ASSESSMENT: A 77-year-old male with diabetic right medial ankle ulceration with osteomyelitis of the medial malleoli of the distal tibia. PLAN: The patient was seen with Dr. Hood. The wound was cleansed. We will continue to apply Bactroban and Optifoam dressing. PICC line is in place. Infectious disease note was read and appreciated. The patient will need 4 to 6 weeks' of IV antibiotics. The patient is requesting if it is feasible, he can come once a day for IV antibiotics at the hospital and for local wound care as opposed to going to an outpatient facility. Simone was told that it is up to the infectious disease doctor to determine what is the best course of action, but if he needs to go to a subacute facility, he will do so. The patient was told that he will need compressive dressings upon discharge and he will need to follow up regardless of where he gets discharged at the wound center at least once a week, possibly twice. The patient agreed. The patient will be seen daily until discharge. Jatin Cooper DPM
[2017-11-19 16:35] VITALS: BP 136/82; PULSE 48; TEMP 98.2; O2SAT 98
--- NOTE | 2017-11-19 21:14 | CP.PCM.PN ---
Subjective - Date & Time of Evaluation Date of Evaluation: 11/19/17 Time of Evaluation: 12:15 - Subjective Subjective: Comfortable, no fevers, not in distress, afebrile, improved pain in the right foot. Objective - Vital Signs/Intake and Output Vital Signs (last 24 hours): Temp Pulse Resp BP Pulse Ox 98.2 F 48 L 20 136/82 98 11/19/17 14:00 11/19/17 14:00 11/19/17 14:00 11/19/17 14:00 11/19/17 14:00 Intake and Output: 11/19/17 11/20/17 18:59 06:59 Intake Total 840 Balance 840 - Medications Medications: Current Medications Amlodipine Besylate (Norvasc) 10 mg PO DAILY [facility] Last Admin: 11/19/17 09:54 Dose: 10 mg Aspirin (Ecotrin) 325 mg PO DAILY [facility] Last Admin: 11/19/17 09:54 Dose: 325 mg Bicalutamide (Casodex) 50 mg PO DAILY [facility] Last Admin: 11/19/17 09:58 Dose: 50 mg Glimepiride (Amaryl) 2 mg PO ACBD [facility] Last Admin: 11/19/17 17:27 Dose: 2 mg Insulin Human Lispro (Humalog High) 0 units SC [facility] PRN Reason: Protocol Last Admin: 11/19/17 16:25 Dose: Not Given Metformin HCl (Glucophage) 1,000 mg PO BID [facility] Last Admin: 11/19/17 17:27 Dose: 1,000 mg Mupirocin (Bactroban Ointment) 0 gm TOP BID [facility] Last Admin: 11/19/17 17:27 Dose: 1 gm - Labs Labs: 11/18/17 06:20 - Constitutional Appears: Chronically Ill - Head Exam Head Exam: NORMAL INSPECTION - ENT Exam ENT Exam: Mucous Membranes Moist - Neck Exam Neck Exam: absent: Meningismus - Respiratory Exam Respiratory Exam: Decreased Breath Sounds - Cardiovascular Exam Cardiovascular Exam: +S1, +S2 - GI/Abdominal Exam GI & Abdominal Exam: Soft. absent: Tenderness - Extremities Exam Additional comments: right foot with dressings in place Assessment and Plan - Assessment and Plan (Free Text) Plan: Assessment Right leg / foot skin and skin structure infection with osteomyelitis, growing Enterobacter on superficial swab of the ulcer DM Prostate CA HTN dyslipidemia CAD cataracts arthritis degenerative joint disease Plan On Vancomycin and Merrem and can be switched to Ertapenem and Doxycycline for at least 4-6 weeks with weekly ESR, CRP, CBC, CMP while on antibiotics, with outpatient follow up with Podiatry will monitor clinically
--- NOTE | 2017-11-20 05:08 | DS ---
DISCHARGE SUMMARY This is an addendum to today's progress note. The patient had PICC line placed yesterday. Dr. Echevarria was contacted and the patient is being discharged on doxycycline. He will finish his course of antibiotic and will follow up with his PMD. The patient was sent home where he will get his IV infusion and doxycycline. Kirsty Hood MD
== END 2017-11-19 21:01 | disposition home or self-care (01) | DRG 638 ==
LOC: ED 15:27 → ERH 18:40 → 5RNO 22:49
PROVIDERS: ADMIT Internal Medicine; ATTEND Internal Medicine
PROC: 02HV33Z Insertion of Infusion Device into Superior Vena Cava, Percutaneous Approach (ICD-10-PCS; principal; 2017-11-18)
PROC: B548ZZA Ultrasonography of Superior Vena Cava, Guidance (ICD-10-PCS; 2017-11-18)
DX: E11.69 Type 2 diabetes mellitus with other specified complication (principal); M86.9 Osteomyelitis, unspecified; L97.319 Non-pressure chronic ulcer of right ankle with unspecified severity; L03.115 Cellulitis of right lower limb; E11.622 Type 2 diabetes mellitus with other skin ulcer; I10 Essential (primary) hypertension; I25.10 Atherosclerotic heart disease of native coronary artery without angina pectoris; E78.5 Hyperlipidemia, unspecified; I77.6 Arteritis, unspecified; M65.9 Synovitis and tenosynovitis, unspecified; E66.3 Overweight; Z68.30 Body mass index [BMI] 30.0-30.9, adult; Z85.46 Personal history of malignant neoplasm of prostate; Z79.84 Long term (current) use of oral hypoglycemic drugs